=== PATIENT | female | born 1995 | race Two or more races ===

== ENCOUNTER 2021-12-02 16:15 | Outpatient (CLI) | payer SELFPAY ==
[2021-12-03 05:59] LABS: Chlamydia DNA Amplified* Not Detected (No Detected); GC DNA Amplified* Not Detected (No Detected)
== END 2021-12-02 16:16 | disposition home or self-care (01) ==
LOC: NFLDREF 16:16
PROVIDERS: Visit Provider Physician Assistant
DX: N89.8 Other specified noninflammatory disorders of vagina (principal); Z11.3 Encounter for screening for infections with a predominantly sexual mode of transmission
CPT/HCPCS: 87491; 87591

== ENCOUNTER 2022-07-16 08:20 | Outpatient (CLI) | payer OTHER, SELFPAY | END 2022-07-16 08:21 | disposition home or self-care (01) | LOC: NFLDREF 07-17 12:33 | PROVIDERS: PCP Physician Assistant; Referring Provider Physician Assistant; Visit Provider Physician Assistant | DX: Z13.6 Encounter for screening for cardiovascular disorders (principal); Z13.1 Encounter for screening for diabetes mellitus | CPT/HCPCS: 80061; 82947 ==

== ENCOUNTER 2022-12-08 14:33 | Outpatient (CLI) | payer OTHER, SELFPAY ==
[2022-12-08 21:41] LABS: Chlamydia DNA Amplified* NOT DETECTED (No Detected); GC DNA Amplified* NOT DETECTED (No Detected)
== END 2022-12-08 14:34 | disposition home or self-care (01) ==
PROVIDERS: PCP Physician Assistant; Visit Provider Physician Assistant
DX: Z11.3 Encounter for screening for infections with a predominantly sexual mode of transmission (principal)
CPT/HCPCS: 86592; 86703; 86706; 86803; 87340; 87491; 87591

== ENCOUNTER 2024-03-21 11:22 | Outpatient (CLI) | payer OTHER, SELFPAY ==
[2024-03-21 19:13] LABS: Bacterial Vaginosis* Negative (Negative); Candida glab/krus NOT DETECTED (No Detected); Candida species NOT DETECTED (No Detected); Trichomonas vaginalis NOT DETECTED (No Detected)
== END 2024-03-21 11:23 | disposition home or self-care (01) ==
LOC: NFLDREF 11:23
PROVIDERS: Visit Provider Physician Assistant
DX: N89.8 Other specified noninflammatory disorders of vagina (principal)
CPT/HCPCS: 81513; 87481; 87661